=== PATIENT | female | born 1960 | race African-American/Black ===

== ENCOUNTER 2024-07-03 21:15 | Inpatient (IN) | payer OTHER ==
[2024-07-03] MEDS ORDERED: ACETAMINOPHEN INJECTION 100 ML ONE (22:19)
[2024-07-03] MEDS: ACETAMINOPHEN 1000 MG/100 ML BAG IVPB ONE (22:36)
[2024-07-03] MEDS: SODIUM CHLORIDE 0.9% 500 ML INFUS.BAG IV ONE (22:36)
[2024-07-03 22:50] LABS: BASO % 0.6 % (0-2.0); EOS % 0.3 % (0-4.5); HEMATOCRIT 31.9 % (32.4-45.2); HEMOGLOBIN 9.9 GM/dL (10.7-15.3); LYMPH % 22.1 % (8-40); MCH 25.5 pg (25.7-33.7); MEAN CELL VOLUME 82.4 fl (80-96); MEAN PLT VOLUME 7.4 fl (7.5-11.1); PLATELET COUNT 327 10^3/uL (134-434); RBC 3.87 M/mm3 (3.60-5.2); RDW 15.9 % (11.6-15.6); WHITE BLOOD COUNT 7.1 K/mm3 (4.0-10.0)
[2024-07-03 22:50] LABS: VENOUS BASE EXCESS 1.2 mmol/L (-2-2); VENOUS O2 SATURATION 35.8 % (70-80); VENOUS PH 7.484 (7.310-7.410)
[2024-07-03 23:08] LABS: POTASSIUM 3.4 mmol/L (3.5-5.1)
[2024-07-03 23:11] LABS: ALBUMIN 3.3 g/dl (3.4-5.0); BLOOD UREA NITROGEN 9.6 mg/dL (7-18)
[2024-07-03 23:14] LABS: CREATININE 0.7 mg/dL (0.55-1.3)
[2024-07-03 23:15] LABS: BILIRUBIN,TOTAL 0.3 mg/dL (0.2-1); TOT PROT 6.7 g/dl (6.4-8.2)
[2024-07-03 23:29] LABS: EPI CELLS 3 /uL (0-25.1); HYALINE CASTS 0 /uL (0-3.1); URINE APPEARANCE CLEAR; URINE BACTERIA 21 /uL (0-1359); URINE BILIRUBIN NEGATIVE (NEGATIVE); URINE COLOR YELLOW; URINE GLUCOSE (UA) NEGATIVE (NEGATIVE); URINE KETONE 2+ (NEGATIVE); URINE LEUK ESTERASE TRACE (NEGATIVE); URINE NITRITE NEGATIVE (NEGATIVE); URINE PROTEIN NEGATIVE (NEGATIVE); URINE RBC 6 /uL (0-23.9); URINE UROBILINOGEN 0.2 mg/dL (0.2-1.0); URINE WBC 15 /uL (0-25.8)
[2024-07-03] MEDS ORDERED: MAGNESIUM SULFATE IN WATER 2 GM/50 ML IVPB IVPB ONE (23:33)
[2024-07-03] MEDS: MAGNESIUM SULFATE IN WATER 2 GM/50 ML IVPB IVPB ONE (23:47)
[2024-07-04] MEDS ORDERED: CEFTRIAXONE 1 GM/50 ML BAG ONE (00:43)
[2024-07-04] MEDS: CEFTRIAXONE 1,000 MG in DEXTROSE 5%-WATER - 50 ML IVPB ONE (00:45)
[2024-07-04] MEDS: METHYLNALTREXONE BROMIDE 8 MG/0.4 ML SYRINGE SQ ONE (01:00)
[2024-07-04] MEDS ORDERED: morphine SULFATE 4 MG/ML VIAL ONE (01:37)
[2024-07-04] MEDS ORDERED: ONDANSETRON 4 MG/2 ML VIAL ONE (01:38)
[2024-07-04] MEDS: morphine CARPU-JECT 4 MG/1 ML DISP.SYRIN IVPUSH ONE (01:47)
[2024-07-04] MEDS: ONDANSETRON 4 MG/2 ML VIAL IVPUSH ONE (01:48)
[2024-07-04] MEDS ORDERED: POTASSIUM CHLORIDE ORAL LIQUID 20 MEQ/15 ML ONE (04:48)
[2024-07-04] MEDS ORDERED: POTASSIUM CHLORIDE TABS 20 MEQ TABLET.ER (FP) PO ONE (04:51)
[2024-07-04] MEDS: MAGNESIUM 1GM/D5W - 1 GM/100 ML IVPB IVPB ONE (04:52)
[2024-07-04] MEDS: POTASSIUM PHOSPHATE 15 MM in SODIUM CHLORIDE 250 ML IVPB ONE (04:53)
[2024-07-04] MEDS: POTASSIUM CHLORIDE TABS 20 MEQ TABLET.ER (FP) PO ONE (04:54)
[2024-07-04] MEDS: TRIMETHOBENZAMIDE HCL 200MG/2ML INJ IM ONE (05:13)
[2024-07-04] MEDS: CHOLECALCIFEROL (VIT D3) 1,000 UNIT (25 MCG) TABLET PO SCH (06:15)
[2024-07-04] MEDS: POLYETHYLENE GLYCOL (HEALTHYLAX) 3350 17 GM PACKET PO SCH (06:15)
[2024-07-04] MEDS: CYCLOBENZAPRINE HCL 10 MG TABLET (FP) PO SCH (06:15)
[2024-07-04 08:43] LABS: BASO % 0.7 % (0-2.0); EOS % 0.1 % (0-4.5); HEMATOCRIT 31.6 % (32.4-45.2); HEMOGLOBIN 10.1 GM/dL (10.7-15.3); LYMPH % 14.7 % (8-40); MCH 26.3 pg (25.7-33.7); MCHC 31.9 g/dl (32.0-36.0); MEAN CELL VOLUME 82.5 fl (80-96); MEAN PLT VOLUME 7.2 fl (7.5-11.1); MONO % 5.6 % (3.8-10.2); NEUT % 78.9 % (42.8-82.8); PLATELET COUNT 344 10^3/uL (134-434); RBC 3.83 M/mm3 (3.60-5.2); RDW 16.1 % (11.6-15.6); WHITE BLOOD COUNT 6.1 K/mm3 (4.0-10.0)
[2024-07-04] MEDS: metroNIDAZOLE 250 MG TABLET PO SCH (08:46)
[2024-07-04 09:07] LABS: POTASSIUM 3.7 mmol/L (3.5-5.1)
[2024-07-04 09:16] LABS: ALBUMIN 3.3 g/dl (3.4-5.0); BLOOD UREA NITROGEN 7.8 mg/dL (7-18); CALCIUM 8.7 mg/dL (8.5-10.1); MAGNESIUM 2.2 mg/dL (1.8-2.4)
[2024-07-04 09:20] LABS: CREATININE 0.7 mg/dL (0.55-1.3); PHOSPHOROUS 3.2 mg/dL (2.5-4.9)
[2024-07-04 09:21] LABS: BILIRUBIN,TOTAL 0.5 mg/dL (0.2-1); TOT PROT 6.9 g/dl (6.4-8.2)
[2024-07-04] MEDS: ENOXAPARIN NA (PORCINE) 40 MG/0.4 ML DISP.SYRIN SQ SCH (09:31)
[2024-07-04] MEDS: ALBUTEROL SO4 HFA INHALER IH SCH (09:31)
[2024-07-04] MEDS: amLODIPine BESYLATE 10 MG TABLET (FP) PO SCH (09:31)
[2024-07-04] MEDS: METOCLOPRAMIDE HCL INJECTION 10 MG/2 ML VIAL IVPUSH PRN (14:41)
[2024-07-04] MEDS: CYCLOBENZAPRINE HCL 5 MG TABLET PO SCH (15:32)
[2024-07-04] MEDS: PANTOPRAZOLE 40 MG TABLET PO SCH (17:15)
[2024-07-05] MEDS: ACETAMINOPHEN 1000 MG/100 ML BAG IVPB PRN (08:09)
[2024-07-05 10:40] LABS: BASO % 0.8 % (0-2.0); EOS % 0.1 % (0-4.5); HEMATOCRIT 34.6 % (32.4-45.2); HEMOGLOBIN 10.7 GM/dL (10.7-15.3); LYMPH % 30.6 % (8-40); MCH 25.7 pg (25.7-33.7); MCHC 31.1 g/dl (32.0-36.0); MEAN CELL VOLUME 82.7 fl (80-96); MEAN PLT VOLUME 7.5 fl (7.5-11.1); MONO % 6.3 % (3.8-10.2); NEUT % 62.2 % (42.8-82.8); PLATELET COUNT 354 10^3/uL (134-434); RBC 4.18 M/mm3 (3.60-5.2); RDW 16.3 % (11.6-15.6); WHITE BLOOD COUNT 3.9 K/mm3 (4.0-10.0)
[2024-07-05 10:50] VITALS: BP 141/114; PULSE 98; RESP 18; TEMP 98.1
[2024-07-05 10:57] LABS: POTASSIUM 4.4 mmol/L (3.5-5.1)
[2024-07-05 11:03] LABS: ALBUMIN 3.5 g/dl (3.4-5.0); BLOOD UREA NITROGEN 6.1 mg/dL (7-18); CALCIUM 9.4 mg/dL (8.5-10.1)
[2024-07-05 11:07] LABS: CREATININE 0.7 mg/dL (0.55-1.3)
[2024-07-05 11:08] LABS: BILIRUBIN,TOTAL 0.5 mg/dL (0.2-1); TOT PROT 7.1 g/dl (6.4-8.2)
[2024-07-05 16:12] VITALS: BMI 27.4
== END 2024-07-05 18:46 | disposition home or self-care (01) | DRG 392 ==
LOC: JER 21:15 → JERBED 07-04 00:41 → J5S 07-04 06:09
PROVIDERS: ADMIT Internal Medicine
DX: K59.03 Drug induced constipation (principal); R64 Cachexia; E44.0 Moderate protein-calorie malnutrition; T40.2X5A Adverse effect of other opioids, initial encounter; K52.9 Noninfective gastroenteritis and colitis, unspecified; I10 Essential (primary) hypertension; D50.9 Iron deficiency anemia, unspecified; E83.42 Hypomagnesemia; E87.6 Hypokalemia; Y92.89 Other specified places as the place of occurrence of the external cause
CPT/HCPCS: 36415; 74177-TC; 80053; 81003; 82728; 82803; 83540; 83550; 83605; 83690; 83735; 84100; 84466; 85025; 85045; 87077; 87086; 93005; 93010; 99285-25; J0131; Q9967